=== PATIENT | female | born 1960 | race Caucasian/White ===

== ENCOUNTER → 2020-07-13 | Outpatient (CLI) | payer OTHER ==
--- NOTE | 2020-07-13 14:00 | ECHOF ---
Referral Reason:[facility] EKG R94.31 MEASUREMENTS -------- HEIGHT: 162.6 cm WEIGHT: 83.9 kg BP: RVIDd: 3.2 cm (< 3.3) IVSd: 1.0 cm (0.6 - 1.1) LVIDd: 4.4 cm (3.9 - 5.3) LVPWd: 1.4 cm (0.6 - 1.1) IVSs: 1.4 cm LVIDs: 2.5 cm LVPWs: 1.8 cm LA Diam: 4.8 cm (2.7 - 3.8) LAESV Index (A-L): 31.97 ml/m Ao Diam: 2.2 cm (2.0 - 3.7) AV Cusp: 1.6 cm (1.5 - 2.6) LA Diam: 4.5 cm (2.7 - 3.8) MV EXCURSION: 21.171 mm (> 18.000) MV EF SLOPE: 110 mm/s (70 - 150) EPSS: 0.8 cm MV E Angel: 0.76 m/s MV DecT: 178 ms MV A Angel: 0.62 m/s MV E/A Ratio: 1.23 RAP: 5.00 mmHg RVSP: 27.32 mmHg FINDINGS -------- Sinus rhythm. This was a technically good study. LV size, wall thickness and systolic function are normal, with an EF greater than 55%. The left vicky tricular size is normal. The right ventricle is normal in size. LA is midly dilated 29-33ml/m2. The right atrial size is normal. The aortic valve is trileaflet, and appears structurally normal. No aortic stenosis or regurgitation. Mild mitral regurgitation is present. Mild tricuspid regurgitation present. Right ventricular systolic pressure is normal at < 35 mmHg. There is no pulmonic regurgitation present. The aortic root size is normal. There is no pericardial effusion. CONCLUSIONS -------- 1. LV size, wall thickness and systolic function are normal, with an EF greater than 55%. 2. The left ventricular size is normal. 3. The right ventricle is normal in size. 4. LA is midly dilated 29-33ml/m2. 5. The right atrial size is normal. 6. Mild mitral regurgitation is present. 7. Mild tricuspid regurgitation present. 8. The aortic root size is normal. 9. There is no pericardial effusion. SEAT JOINER CHAINSTITCH: Marilee Cui RDCS
== END | disposition home or self-care (01) ==
LOC: RADECHMAIN 12:08
PROVIDERS: ATTEND Nurse Practitioner
DX: I08.1 Rheumatic disorders of both mitral and tricuspid valves (principal)
CPT/HCPCS: 93306

== ENCOUNTER → 2020-08-18 | Outpatient (CLI) | payer OTHER ==
--- NOTE | 2020-08-30 09:13 | MM ---
Reason for exam: screening (asymptomatic). Last mammogram was performed 2 years and 9 months ago. History: Excisional biopsy of the right breast, 2018. Excisional biopsy of the left breast, 1995. Physical Findings: A clinical breast exam by your physician is recommended on an annual basis and results should be correlated with mammographic findings. MG 3D Screening Mammo W/Cad Bilateral CC and MLO view(s) were taken. Prior study comparison: November 14, 2017, mammogram, performed at [facility]. July 18, 2015, mammogram, performed at [place]. The breast tissue is heterogeneously dense. This may lower the sensitivity of mammography. Previous mammotome biopsy in the right breast. There is chronic nodularity in the left anterior superior left MLO view. Stable grouped calcifications on either side. No significant changes when compared with prior studies. ASSESSMENT: Benign, BI-RAD 2 RECOMMENDATION: Routine screening mammogram of both breasts in 1 year.
== END | disposition home or self-care (01) ==
LOC: RADMAMWWP 10:36
PROVIDERS: ATTEND General Practice
DX: Z12.31 Encounter for screening mammogram for malignant neoplasm of breast (principal)
CPT/HCPCS: 77063; 77067

== ENCOUNTER → 2021-12-19 | Outpatient (CLI) | payer OTHER ==
--- NOTE | 2021-12-20 10:03 | MM ---
Reason for Exam: Screening (asymptomatic). Last mammogram was performed 1 year(s) and 4 month(s) ago. Patient History: Menarche at age 7. First Full-Term at age 14. Hysterectomy at age 34. 1995, Excisional Biopsy on the Left side. 2017, Excisional Biopsy on the Right side. Risk Values: Emily 5 year model risk: 1.9%. NCI Lifetime model risk: 7.9%. Prior Study Comparison: 07/18/2015 Screening Mammogram, [place]. 11/14/2017 Screening Mammogram, [facility]. 08/18/2020 Bilateral Screening Mammogram, [facility]. Tissue Density: The breast tissue is heterogeneously dense. This may lower the sensitivity of mammography. Findings: Analyzed By CAD. There is no suspicious group of microcalcifications or new suspicious mass in either breast. Benign calcifications are noted. Overall Assessment: Benign, BI-RAD 2 Management: Screening Mammogram of both breasts in 1 year. A clinical breast exam by your physician is recommended on an annual basis and results should be correlated with mammographic findings. Electronically signed and approved by: Jonathan Tineo M.D. Radiologis
== END | disposition home or self-care (01) ==
LOC: RADMAMWWP 10:58
PROVIDERS: ATTEND Internal Medicine
DX: Z12.31 Encounter for screening mammogram for malignant neoplasm of breast (principal); Z98.890 Other specified postprocedural states
CPT/HCPCS: 77063; 77067

== ENCOUNTER → 2023-05-30 | Outpatient (CLI) | payer MEDICARE ==
--- NOTE | 2023-05-30 18:09 | US ---
EXAMINATION TYPE: US thyroid st tissue head/neck DATE OF EXAM: 05/30/2023 COMPARISON: NONE CLINICAL INDICATION: Female, 63 years old with history of E04.1 NONTOXIC SINGLE THYROID NODULE; nodul e GLAND SIZE: Right Lobe: 5.5 x 2.0 x 2.0 cm Overall Parenchyma: heterogeneous Left Lobe: 4.7 x 1.1 x 1.5 cm Overall Parenchyma: heterogeneous Isthmus Thickness: 0.28 cm NODULES RIGHT: # of nodules measured on right: 1 1. 2.5 X 1.6 x 1.7 cm, mid mid, Prior size: No prior TIRADS Score: 3 TIRADS Category 3: Composition: Mixed cystic and solid (1 point). Echogenicity: Hypoechoic (2 points). Shape: Wider than tall (0 points). Margin: Smooth (0 points). Echogenic foci: None or large comet-tail artifacts (0 points) Recommendation: If >2.5cm: FNA; If >1.5cm: Follow up at 1,3,5 years LEFT: # of nodules measured on left: 1, Additional less than 5 mm nodule seen, not fully measured . 1. 1.4 X 1.0 x 0.9 cm, Prior size: No prior TIRADS Score: 3 TIRADS Category 3: Composition: Solid or almost completely solid (2 points). Echogenicity: Hyperechoic or isoechoic (1 point). Shape: Wider than tall (0 points). Margin: Smooth (0 points). Echogenic foci: None or large comet-tail artifacts (0 points) Recommendation: If >2.5cm: FNA; If >1.5cm: Follow up at 1,3,5 years ISTHMUS: # of nodules measured in the isthmus: 0 Bilateral neck scanned, no evidence of lymphadenopathy. IMPRESSION: Right thyroid nodule that meets criteria for fine-needle aspiration majority performed.
--- NOTE | 2023-05-31 04:40 | CT ---
EXAMINATION TYPE: CT chest wo con DATE OF EXAM: 05/30/2023 COMPARISON: Chest x-ray April 17, 2022 HISTORY: Nonspecific abnormal finding of the lung field. CT DLP: 440.3 mGycm. Automated Exposure Control for Dose Reduction was Utilized. TECHNIQUE: CT scan of the thorax is performed without IV contrast. FINDINGS: LUNGS: There is 5 mm peripheral nodule in the left lower lobe axial image 39. There is mild right bas ilar linear scarring and/or atelectasis. There is no pleural effusion or pneumothorax seen. The tr acheobronchial tree is patent. MEDIASTINUM: Lack of IV contrast is noted to limit evaluation for mediastinal and especially hilar ad enopathy. Prominent pulmonary arteries raises concern for underlying pulmonary artery hypertension. T here are prominent but subcentimeter paratracheal and right tracheobronchial lymph nodes. Mild cardio megaly. There is moderate biatrial dilatation. No pericardial effusion. OTHER: Surgical changes from gastric bypass procedure are seen. There is a small sliding-type hiatal hernia. There is 2.3 cm oval low dense right thyroid nodule coronal image 52. IMPRESSION: 1. There is 5 mm peripheral left lower lobe nodule. Consider follow-up CT in one year time to reasses s as per Fleischner Society recommendations. 2. There is 2.3 cm right thyroid nodule. Advise thyroid ultrasound follow-up to further evaluate and characterize if this is not known finding.
== END | disposition home or self-care (01) ==
LOC: RADCTMAIN 13:54
PROVIDERS: ATTEND Family Medicine
DX: E04.1 Nontoxic single thyroid nodule (principal); R91.8 Other nonspecific abnormal finding of lung field
CPT/HCPCS: 71250; 76536

== ENCOUNTER → 2023-07-01 | Outpatient (CLI) | payer MEDICARE ==
--- NOTE | 2023-07-02 19:31 | MM ---
Reason for Exam: Screening (asymptomatic). Last mammogram was performed 1 year(s) and 6 month(s) ago. Patient History: Menarche at age 7. First Full-Term at age 14. Hysterectomy at age 34. 1995, Excisional Biopsy on the Left side. 2017, Excisional Biopsy on the Right side. Risk Values: Emily 5 year model risk: 2.0%. NCI Lifetime model risk: 7.4%. Prior Study Comparison: 11/14/2017 Screening Mammogram, [facility]. 08/18/2020 Bilateral Screening Mammogram, [facility]. 12/19/2021 Bilateral MG 3D screening mammo w/cad, [facility]. Tissue Density: There are scattered areas of fibroglandular density. Findings: Analyzed By CAD. Bilateral asymmetric densities are unchanged. Scattered benign round calcifications are also unchanged. There is no suspicious group of microcalcifications or new suspicious mass in either breast. Overall Assessment: Benign, BI-RAD 2 Management: Screening Mammogram of both breasts in 1 year. . Patient should continue monthly self-breast exams. A clinical breast exam by your physician is recommended on an annual basis. This exam should not preclude additional follow-up of suspicious palpable abnormalities. Note on Emily scores and lifetime risk: 1. A Emily score greater than 3% is considered moderate risk. If this is the case, consider specialist referral to assess eligibility for a risk reducing agent. 2. If overall lifetime risk for the development of breast cancer is 20% or higher, the patient may qualify for future screening with alternating mammogram and breast MRI. Electronically signed and approved by: Yohan Sanchez M.D. Radiologist
== END | disposition home or self-care (01) ==
LOC: RADMAMWWP 09:52
PROVIDERS: ATTEND Family Medicine
DX: Z12.31 Encounter for screening mammogram for malignant neoplasm of breast (principal)
CPT/HCPCS: 77063; 77067

== ENCOUNTER → 2023-07-10 | Outpatient (CLI) | payer MEDICARE, OTHER ==
--- NOTE | 2023-07-11 06:50 | CA ---
Transthoracic Echo Report Name: Sharlene Escalera Age: 63 Gender: F : 1960 Exam Date: 07/10/2023 13:56 Exam Location: [facility] Ht (in): 62 Wt (lb): 195 Ordering Physician: Karyn De Jesus Attending/Referring Phys: Applications Intern No Guthrie RDCS Procedure CPT: Indications: R06.02 ECECHOH Cardiac Hx: Technical Quality: Fair Contrast 1: Total Dose (mL): Contrast 2: Total Dose (mL): MEASUREMENTS (Male / Female) Normal Values 2D ECHO LV Diastolic Diameter PLAX 4.3 cm 4.2 - 5.9 / 3.9 - 5.3 cm LV Systolic Diameter PLAX 2.6 cm IVS Diastolic Thickness 0.9 cm 0.6 - 1.0 / 0.6 - 0.9 cm LVPW Diastolic Thickness 1.0 cm 0.6 - 1.0 / 0.6 - 0.9 cm LV Relative Wall Thickness 0.4 RV Internal Dim ED PLAX 4.3 cm LVOT Diameter 1.9 cm LA Volume 106.5 cm??? 18 - 58 / 22 - 52 cm??? LA Volume Index 53.0 cm???/m??? 16 - 28 cm???/m??? M-MODE Aortic Root Diameter MM 2.9 cm LA Systolic Diameter MM 5.1 cm LA Ao Ratio MM 1.8 AV Cusp Separation MM 1.3 cm DOPPLER AV Peak Velocity 185.8 cm/s AV Peak Gradient 13.8 mmHg AV Mean Velocity 135.0 cm/s AV Mean Gradient 8.0 mmHg AV Velocity Time Integral 38.5 cm LVOT Peak Velocity 74.4 cm/s LVOT Peak Gradient 2.2 mmHg LVOT Velocity Time Integral 15.0 cm LVOT Stroke Volume 42.9 cm??? LVOT Stroke Volume Index 22.7 ml/m??? LVOT Cardiac Index 1688.5 cm???/min???m??? AV Area Cont Eq vti 1.1 cm??? AV Area Cont Eq pk 1.1 cm??? MV Area PHT 4.2 cm??? MR Peak Velocity 503.2 cm/s MR Peak Gradient 101.3 mmHg MR Flow Rate PISA 33.5 cm???/s Mitral E Point Velocity 115.5 cm/s Mitral A Point Velocity 0.9 cm/s Mitral E to A Ratio 127.8 MV Deceleration Time 180.3 ms MV E' Velocity 8.2 cm/s Mitral E to MV E' Ratio 14.2 TR Peak Velocity 256.5 cm/s TR Peak Gradient 26.3 mmHg Right Ventricular Systolic Press 32.1 mmHg FINDINGS Left Ventricle Normal Left ventricular size, wall thickness, systolic function with no obvious regional wall motion abnormalities. Can not assess diastolic function since the patient is in A-fib. Right Ventricle Normal right ventricular size and function. Right ventricular systolic pressure within normal limits. Right Atrium Severe right atrial dilatation. Left Atrium Severely increased left atrial volume. Mildly increased left atrial area. Mitral Valve Structurally normal mitral valve. Mild mitral annular calcification. Moderate mitral regurgitation. Aortic Valve Trileaflet aortic valve. No aortic stenosis. Trace aortic regurgitation. Tricuspid Valve Structurally normal tricuspid valve. Moderate tricuspid regurgitation. Pulmonic Valve Structurally normal pulmonic valve. Trace pulmonic regurgitation. Pericardium No pericardial effusion. Aorta Normal size aortic root and proximal ascending aorta. CONCLUSIONS Normal LV systolic function. The ejection fraction is 50-55% Normal right ventricular dimension and systolic function as well Severe biatrial enlargement Moderate mitral regurgitation Moderate tricuspid regurgitation Normal pulmonary artery systolic pressure Previewed by: Dr. Cisco Miller MD (Electronically Signed) Final Date: 11 Jul 2023 06:49
== END | disposition home or self-care (01) ==
LOC: RADECHMAIN 13:39
PROVIDERS: ATTEND Nurse Practitioner Acute Care
DX: I34.0 Nonrheumatic mitral (valve) insufficiency (principal); I36.1 Nonrheumatic tricuspid (valve) insufficiency; I48.11 Longstanding persistent atrial fibrillation; I51.7 Cardiomegaly
CPT/HCPCS: 93306

== ENCOUNTER 2023-08-09 12:20 | Day surgery (SDC) | payer MEDICARE, OTHER ==
[2023-08-09] MEDS: IV FLUID CONTINUATION 1,000 ML IV ONE (13:07)
[2023-08-09] MEDS: LACTATED RINGERS 1,000 ML BAG IV ONE (13:13)
[2023-08-09 13:20] VITALS: TEMP 96.9
[2023-08-09] MEDS ORDERED: PROPOFOL 10 MG/ML 20 ML VIAL IV ONE (13:55)
[2023-08-09] MEDS ORDERED: LIDOCAINE 1% INJ 10MG/ML (20 ML MDV) ONE (13:55)
--- NOTE | 2023-08-09 14:24 | P.PCN ---
Date of Procedure: 08/09/23 Procedure(s) Performed: BRIEF HISTORY: Patient is a 63-year-old pleasant white female scheduled for an elective colonoscopy as a part of screening for colon cancer/positive Cologuard. PROCEDURE PERFORMED: Colonoscopy with snare polypectomy. PREOPERATIVE DIAGNOSIS: Screening for colon cancer/positive Cologuard. IV sedation per Anesthesia. PROCEDURE: After informed consent was obtained, the patient, was brought into the endoscopy unit. IV sedation was administered by Anesthesia under continuous monitoring. Digital rectal examination was normal. Initially the Olympus CF-160 flexible video colonoscope was then inserted in the rectum, gradually advanced into the cecum without any difficulty. Careful examination was performed as the scope was gradually being withdrawn. Ileocecal valve and the appendiceal orifice were visualized and appeared normal. Prep was excellent. Mucosa of the cecum, ascending colon, appeared normal. The proximal transverse colon there was a 3 cm submucosal lipoma 9 identified that was biopsied. In the descending colon there was a 2 cm broad-based polyp removed by piecemeal snare polypectomy and complete polypectomy accomplished. Rest of the descending colon, sigmoid colon, and rectum appeared normal. In the proximal rectum at 20 cm from the anal verge there was a 1.5 cm polyp removed by snare polypectomy. Retroflexion was performed in the rectum and no lesions were seen. The patient tolerated the procedure well. IMPRESSION: 2 cm descending colon polyp status post polypectomy 1.5 cm proximal rectal polyp status post polypectomy 3 cm lipoma in the proximal transverse colon s/p biopsy RECOMMENDATIONS: Findings of this examination were discussed with the patient as well as her family..
[2023-08-09 15:06] VITALS: BP 125/71; PULSE 87; RESP 17
== END 2023-08-09 15:00 | disposition home or self-care (01) ==
LOC: ORWHC2ENDO 12:20
PROVIDERS: ATTEND Internal Medicine Gastroenterology
DX: D12.4 Benign neoplasm of descending colon (principal); D12.7 Benign neoplasm of rectosigmoid junction; I25.10 Atherosclerotic heart disease of native coronary artery without angina pectoris; I48.91 Unspecified atrial fibrillation; I10 Essential (primary) hypertension; M19.90 Unspecified osteoarthritis, unspecified site; Z79.01 Long term (current) use of anticoagulants; Z79.899 Other long term (current) drug therapy; Z79.1 Long term (current) use of non-steroidal anti-inflammatories (NSAID); Z88.2 Allergy status to sulfonamides; Z88.8 Allergy status to other drugs, medicaments and biological substances
CPT/HCPCS: 88305; 45380; 45385; J2001; J2704

== ENCOUNTER 2023-08-26 11:40 | Day surgery (SDC) | payer MEDICARE ==
[2023-08-26] MEDS ORDERED: LACTATED RINGERS 1,000 ML IV SCH (12:03)
[2023-08-26 12:15] VITALS: TEMP 97.2
[2023-08-26 12:43] LABS: African American GFR (CKD) 86 (>60 ml/min/1.73 sqM); Anion Gap 4 mmol/L; Blood Urea Nitrogen 13 mg/dL (7-17); Carbon Dioxide 24 mmol/L (22-30); Chloride 111 mmol/L (98-107); Glucose 106 mg/dL (74-99); Non-African American GFR(CKD) 75 (>60 ml/min/1.73 sqM); Potassium 4.6 mmol/L (3.5-5.1); Sodium 139 mmol/L (137-145)
[2023-08-26] MEDS: SODIUM CHLORIDE 0.9% 500 ML 500 ML IV SCH (12:43)
[2023-08-26] MEDS: IV FLUID CONTINUATION 1,000 ML IV ONE (12:45)
[2023-08-26] MEDS ORDERED: LIDOCAINE 1% INJ 10MG/ML (20 ML MDV) ONE (13:00)
[2023-08-26] MEDS ORDERED: PROPOFOL 10 MG/ML 20 ML VIAL IV ONE (13:00)
[2023-08-26] MEDS: BENZOCAINE SPRAY 1 CAN TOPICAL ONE (13:05)
--- NOTE | 2023-08-26 13:19 | P.TEE ---
Description of Procedure(s): Procedure performed: Transesophageal Echocardiogram with color flow doppler, pulsed wave doppler and continuous wave doppler, synchronized cardioversion Moderate conscious sedation: Moderate conscious sedation was supplied by anesthesia, see separate report. Complications: none Indications: Afib PROCEDURE: After the risks, benefits and alternatives of the above mentioned procedure was explained in detail with the patient, informed consent was obtained. Patient was brought to the lab in a fasting state. Patient was given sedation by anesthesia, see separate report. The throat was sprayed with Hurricane to anesthetize the throat. A lubricated Omni probe was then introduced into the esophagus and stomach and multiple views were obtained. 2D echo with color flow doppler, pulsed wave doppler and continuous wave doppler was utilized. Agitated saline bubbles were injected to assess for any intra- atrial shunt. The probe was then removed. There was no thrombus noted and therefore patient underwent synchronized cardioversion x 1 with 200J with resultant sinus rhythm. Patient tolerated the procedure well. Patient was transferred to the post procedure area in stable and satisfactory condition. FINDINGS: 1. The aortic valve is tricuspid and function normally. 2. The mitral valve appears be normal with moderate mitral regurgitation, initially worse while BP elevated. 3. Tricuspid valve appears to be structurally normal with moderate to severe tricuspid regurgitation. 4. The interatrial septum is intact. No evidence of PFO. 5. Left atrial appendage is free of clot. 6. Left ventricular EF 55% 7. Severe biatrial enlargement
[2023-08-26 14:19] VITALS: RESP 16
[2023-08-26 14:50] VITALS: BP 112/72; PULSE 71
== END 2023-08-26 14:54 | disposition home or self-care (01) ==
LOC: OR 11:40
PROVIDERS: ATTEND Internal Medicine
DX: I08.1 Rheumatic disorders of both mitral and tricuspid valves (principal); I48.11 Longstanding persistent atrial fibrillation; I10 Essential (primary) hypertension; K21.9 Gastro-esophageal reflux disease without esophagitis; D50.9 Iron deficiency anemia, unspecified; Z79.01 Long term (current) use of anticoagulants; Z79.899 Other long term (current) drug therapy
CPT/HCPCS: 93312; 93320; 93325; 92960; 80048; J2001; J2704

== ENCOUNTER 2023-12-07 10:15 | Observation (INO) | payer MEDICARE, OTHER ==
[2023-12-07 11:38] LABS: Appearance,Urine Clear (Clear); Bacteria,Urine Rare /hpf; Bilirubin,Urine Negative (Negative); Blood,Urine Small (Negative); Color,Urine Colorless; Glucose,Urine (UA) 2+ (Negative); Ketones,Urine Negative (Negative); Leukocyte Esterase,Urine Moderate (Negative); Nitrite,Urine Negative (Negative); Protein,Urine Negative (Negative); RBC,Urine <1 /hpf (0-5); Specific Gravity,Urine 1.002 (1.001-1.035); Squamous Epithelial Cell,Urine 1 /hpf (0-4); Urobilinogen,Urine <2.0 mg/dL (<2.0); WBC,Urine 8 /hpf (0-5)
[2023-12-07] MEDS: ASPIRIN 81 MG PO STA (11:45)
--- NOTE | 2023-12-07 12:00 | XR ---
EXAMINATION TYPE: XR chest 2V DATE OF EXAM: 12/07/2023 COMPARISON: 04/17/2022 HISTORY: Chest pain TECHNIQUE: Frontal and lateral views of the chest are obtained. FINDINGS: There is no focal air space opacity, pleural effusion, or pneumothorax seen. The cardiac silhouette size is within normal limits. The osseous structures are intact. IMPRESSION: No acute cardiopulmonary process. [facility], Workstation: MARYSE 12/07/2023 11:57 AM
[2023-12-07] MEDS: SODIUM CHLORIDE 0.9% 1,000 ML IV STA (12:12)
[2023-12-07] MEDS: METOPROLOL TARTRATE 5 MG/5 ML VIAL IVP STA (12:13)
[2023-12-07 12:21] LABS: Anisocytosis Slight; Basophils # (A) 0.1 k/uL (0-0.2); Basophils % (A) 1 %; Eosinophils # (A) 0.2 k/uL (0-0.7); Eosinophils % (A) 2 %; Hypochromasia Slight; Lymphocytes # (A) 1.5 k/uL (1.0-4.8); Lymphocytes % (A) 15 %; MCH 28.7 pg (25.0-35.0); MCHC 31.8 g/dL (31.0-37.0); MCV 90.4 fL (80.0-100.0); Mean Platelet Volume 7.5; Monocytes # (A) 0.7 k/uL (0-1.0); Monocytes % (A) 7 %; Neutrophils # (A) 7.5 k/uL (1.3-7.7); Neutrophils % (A) 75 %; Platelet Count 288 k/uL (150-450); RBC 4.87 m/uL (3.80-5.40); WBC 9.9 k/uL (3.8-10.6)
[2023-12-07 12:34] LABS: ALT 35 U/L (4-34); AST 29 U/L (14-36); African American GFR (CKD) 81 (>60 ml/min/1.73 sqM); Albumin 3.6 g/dL (3.5-5.0); Alkaline Phosphatase 97 U/L (38-126); Anion Gap 6 mmol/L; Blood Urea Nitrogen 11 mg/dL (7-17); Calcium 9.2 mg/dL (8.4-10.2); Carbon Dioxide 26 mmol/L (22-30); Chloride 109 mmol/L (98-107); Glucose 82 mg/dL (74-99); Magnesium 2.1 mg/dL (1.6-2.3); Non-African American GFR(CKD) 70 (>60 ml/min/1.73 sqM); Sodium 141 mmol/L (137-145); Total Bilirubin 0.5 mg/dL (0.2-1.3); Total Protein 6.9 g/dL (6.3-8.2)
[2023-12-07 12:37] LABS: Partial Thromboplastin Time 25.4 sec (22.0-30.0); Prothrombin Time 10.8 sec (10.0-12.5)
[2023-12-07 12:42] LABS: NT-Pro-B-Type Natriuretic Pept 403 pg/mL
[2023-12-07] MEDS: METOPROLOL TARTRATE 25 MG TAB PO STA (12:49)
[2023-12-07] MEDS ORDERED: NALOXONE 0.4 MG/ML 1 ML VIAL IV PRN (13:35)
--- NOTE | 2023-12-07 13:54 | P.HPIM ---
History of Present Illness H&P Date: 12/07/23 63 year old F with PMH of A-Fib presents to the ED. She reports a constellation of symptoms including palpitations, lightheadedness and nausea that started after breakfast. She checked her vitals and noted her SBP to be in the 170s and HR in the 120s. She also reported chest pain, pressure like in nature. She took 2 nitro SL which seemed to help. These symptoms prompted her to come to the ED. In the ED she underwent extensive evaluation. BP 149/90, HR 129, T 98.1F, RR 20, 99% on RA. CBC, Coag panel, CMP significant for Cl 109, ALT 35. Troponin < 0.012 with EKG showing A-Fib with RVR. CXR negative. UA moderate LE. BNP 304. Mag 2.1. She was given Metoprolol 2.5 mg IV, ASA 325 mg PO x 1, Metoprolol 25 mg PO x 1, 1L NS bolus in the ED. Patient is admitted for chest pain, rule out ACS and Cardiology evaluation. General: non toxic, no distress, appears at stated age Derm: warm, dry Head: atraumatic, normocephalic, symmetric Eyes: EOMI, no lid lag, anicteric sclera Mouth: no lip lesion, mucus membranes moist Cardiovascular: S1S2 irregular, no murmur Lungs: Clear to auscultation bilateral, no rhonchi, no rales , no accessory muscle use Ext: no gross muscle atrophy, no edema, no contractures Neuro: No focal neurologic deficits Psych: Alert and oriented Based on my assessment of this patient, this patient meets a high complexity level of care. Atrial fibrillation with RVR: Start Metoprolol 50 mg PO QD. Dronedarone 400 mg PO BID. Eliquis 5 mg PO BID for AC. Obtain TSH. Cardiology consultation. Chest pain: Patient reports recent stress test 4 months ago with [facility]. Status post ASA 325 mg PO x 1. Trend Trop/EKG to rule out ACS. Telemetry monitoring. Cardiology consultation. Abnormal UA: No urinary symptoms. CODE STATUS: FULL CODE. DVT Prophylaxis: Eliquis GI Prophylaxis: Designated medical POA if patient is not able to make medical decisions for themselves: I have reviewed the following rn lactation consultant notes: ER note. I have reviewed the results of the following tests: As above. I have ordered the following tests: As above. I have discussed the care of this patient with the following independent historian: Family at bedside. I have independently interpreted the following test below: CXR. I have discussed the management of this patient with the following physician: Past Medical History Past Medical History: Atrial Fibrillation, Blood Disorder, Hypertension, Osteoarthritis (OA) Additional Past Medical History / Comment(s): Ablasion for Afib done twice - last one October 2021, on eliquis for afib, IRON DEFICIENCY ANEMIA. History of Any Multi-Drug Resistant Organisms: None Reported Past Surgical History: Breast Surgery, Hysterectomy, Orthopedic Surgery Additional Past Surgical History / Comment(s): right knee unispacer, benign lump removed from breast, Past Anesthesia/Blood Transfusion Reactions: No Reported Reaction Past Psychological History: No Psychological Hx Reported Smoking Status: Never smoker - Past Family History Father Family Medical History: Myocardial Infarction (AL) Medications and Allergies Home Medications Medication Instructions Recorded Confirmed Type Apixaban [Eliquis] 5 mg PO DIRECTED 04/17/22 12/07/23 History Dronedarone HCl [Multaq] 400 mg PO DIRECTED 04/17/22 12/07/23 History amLODIPine [Norvasc] 10 mg PO DAILY 04/17/22 12/07/23 History Metoprolol Succinate (ER) [Toprol 50 mg PO DIRECTED 08/07/23 12/07/23 History XL] Furosemide [Lasix] 10 - 20 mg PO DIRECTED 12/07/23 12/07/23 History Allergies Allergy/AdvReac Type Severity Reaction Status Date / Time Iodinated Contrast Media Allergy chest Verified 12/07/23 13:16 pressure/pain Sulfa (Sulfonamide Allergy Tongue Verified 12/07/23 13:16 Antibiotics) swelling & rapid heart rate Physical Exam Vitals: Vital Signs Temp Pulse Pulse Resp BP Pulse Ox 12/07/23 12:15 105 H 16 132/71 98 12/07/23 11:29 114 H 18 130/73 98 12/07/23 11:02 111 H 12/07/23 10:23 98.1 F 129 H 20 149/90 99 Intake and Output 12/06/23 12/07/23 12/07/23 22:59 06:59 14:59 Other: Weight 90.718 kg Results CBC & Chem 7: 12/07/23 11:12 12/07/23 11:12 Labs: Abnormal Lab Results - Last 24 Hours (Table) 12/07/23 12/07/23 12/07/23 Range/Units 11:12 11:12 11:12 RDW 19.0 H (11.5-15.5) % Chloride 109 H (98-107) mmol/L ALT 35 H (4-34) U/L Urine Glucose (UA) 2+ H (Negative) Urine Blood Small H (Negative) Ur Leukocyte Esterase Moderate H (Negative) Urine WBC 8 H (0-5) /hpf Urine Bacteria Rare H (None) /hpf
--- NOTE | 2023-12-07 14:48 | ED ---
General Adult HPI - General Chief complaint: Arrhythmia/Palpitations Stated complaint: Possible cardiac arrest Time Seen by Provider: 12/07/23 10:45 Source: patient, RN notes reviewed, old records reviewed Mode of arrival: ambulatory Limitations: no limitations - History of Present Illness Initial comments: Patient is a 63-year-old female with past medical history remarkable for atrial fibrillation presents emergency department complaining of chest pain and atrial fibrillation. Has a history of synchronized cardioversion. Is on blood thi nners. Also past medical history of hypertension. States that this morning after breakfast she began feeling a little nauseous with some nonspecific substernal chest discomfort. Took 2 nitros which did improve her pain however she began feeling like her heart was racing. Found she was hypertensive as well as with a fast heart rate. Came to the emergency department for further evaluation. Patient is on metoprolol as well as blood thinners at home. Denies cough, congestion, fevers, abdominal pain, nausea, vomiting. Presents for further evaluation at this time. - Related Data Home Medications Medication Instructions Recorded Confirmed Apixaban [Eliquis] 5 mg PO DIRECTED 04/17/22 12/07/23 Dronedarone HCl [Multaq] 400 mg PO DIRECTED 04/17/22 12/07/23 amLODIPine [Norvasc] 10 mg PO DAILY 04/17/22 12/07/23 Metoprolol Succinate (ER) [Toprol 50 mg PO DIRECTED 08/07/23 12/07/23 XL] Furosemide [Lasix] 10 - 20 mg PO DIRECTED 12/07/23 12/07/23 Allergies Allergy/AdvReac Type Severity Reaction Status Date / Time Iodinated Contrast Media Allergy chest Verified 12/07/23 13:16 pressure/pain Sulfa (Sulfonamide Allergy Tongue Verified 12/07/23 13:16 Antibiotics) swelling & rapid heart rate Review of Systems ROS Statement: Those systems with pertinent positive or pertinent negative responses have been documented in the HPI. Review of Systems: CONST: Denies fever EYES: Denies blurry vision ENT: Denies nasal congestion C/V: Endorses palpitation RESP: Denies shortness of breath GI: Denies abdominal pain : Denies dysuria SKIN: Denies rash. MSK: Denies joint pain. NEURO: Denies headache ROS Other: All systems not noted in ROS Statement are negative. Past Medical History Past Medical History: Atrial Fibrillation, Blood Disorder, Hypertension, Osteoarthritis (OA) Additional Past Medical History / Comment(s): Ablasion for Afib done twice - last one October 2021, on eliquis for afib, IRON DEFICIENCY ANEMIA. History of Any Multi-Drug Resistant Organisms: None Reported Past Surgical History: Breast Surgery, Hysterectomy, Orthopedic Surgery Additional Past Surgical History / Comment(s): right knee unispacer, benign lump removed from breast, Past Anesthesia/Blood Transfusion Reactions: No Reported Reaction Past Psychological History: No Psychological Hx Reported Smoking Status: Never smoker - Past Family History Father Family Medical History: Myocardial Infarction ([place]) General Exam - General Exam Comments Initial Comments: General: Appears in no acute distress. HEAD: Normal with no signs of head trauma. EYES: EOMI ENT: Hearing grossly intact, normal oropharynx. RESPIRATORY: Clear breath sounds bilaterally. No wheezes, rales, or rhonchi. C/V: Irregular rate and rhythm. S1 and S2 auscultated, no edema, peripheral pulses 2+ and intact throughout ABD: Abd is soft, nontender, nondistended EXT: Normal range of motion, no obvious deformity SKIN: No rashes or lesions observed on exposed skin. NEURO: Alert and oriented x 4 Limitations: no limitations Course Vital Signs 12/07/23 12/07/23 12/07/23 10:23 11:02 11:29 Temperature 98.1 F Pulse Rate 129 H 114 H Pulse Rate [ 111 H Intermission Coordinator ] Respiratory 20 18 Rate Blood Pressure 149/90 130/73 O2 Sat by Pulse 99 98 Oximetry 12/07/23 12/07/23 12:15 14:03 Temperature Pulse Rate 105 H 87 Pulse Rate [ Intermission Coordinator ] Respiratory 16 16 Rate Blood Pressure 132/71 146/83 O2 Sat by Pulse 98 97 Oximetry Medical Decision Making - Medical Decision Making Was pt. sent in by a medical professional or institution (, PA, JANITOR HELPER, urgent care, hospital, or [facility]...) When possible be specific @ -No Did you speak to anyone other than the patient for history (EMS, parent, family, police, friend...)? What history was obtained from this source @ -No Did you review nursing and triage notes (agree or disagree)? Why? @ -I reviewed and agree with nursing and triage notes Were old charts reviewed (outside hosp., previous admission, EMS record, old EKG, old radiological studies, urgent care reports/EKG's, [facility] records)? Report findings @ -Charts including EKG reviewed from August 2023 when patient was in normal sinus rhythm. Differential Diagnosis (chest pain, altered mental status, abdominal pain women, abdominal pain men, vaginal bleeding, weakness, fever, dyspnea, syncope, headache, dizziness, GI bleed, back pain, seizure, CVA, palpatations, mental health, musculoskeletal)? @ -Differential Chest Pain: Stable Angina, Unstable Angina, STEMI, NSTEMI Aortic Dissection, Pneumothorax, Musculoskeletal, Esophageal Spasm GERD, Cholecystitis, Pancreatitis, Zoster, this is not meant to be an all-inclusive list. EKG interpreted by me (3pts min.). @ -As above X-rays interpreted by me (1pt min.). @ -Chest x-ray reveals no obvious acute cardiopulmonary process. CT interpreted by me (1pt min.). @ -None done U/S interpreted by me (1pt. min.). @ -None done What testing was considered but not performed or refused? (CT, X-rays, U/S, labs)? Why? @ -None What meds were considered but not given or refused? Why? @ -None Did you discuss the management of the patient with other professionals (pr ofessionals i.e. , PA, JANITOR HELPER, lab, RT, psych nurse, geriatric social work professor, svp digital sales, teacher, chief procurement officer, case management associate)? Give summary @ -Discussed with the admitting provider, Dr. Chan who accepted the admission Was smoking cessation discussed for >3mins.? @ -No Was critical care preformed (if so, how long)? @ -No Were there social determinants of health that impacted care today? How? (Homelessness, low income, unemployed, alcoholism, drug addiction, transportation, low edu. Level, literacy, decrease access to med. care, [facility], rehab)? @ -No Was there de-escalation of care discussed even if they declined (Discuss DNR or withdrawal of care, Hospice)? DNR status @ -No What co-morbidities impacted this encounter? (DM, HTN, Smoking, COPD, CAD, Cancer, CVA, ARF, Chemo, Hep., AIDS, mental health diagnosis, sleep apnea, morbid obesity)? @ -A-fib with RVR Was patient admitted / discharged? Hospital course, mention meds given and route, prescriptions, significant lab abnormalities, going to OR and other pertinent info. @ -Based on the patient's presentation and physical exam, patient presents in A-fib with RVR as well as chest pain that responded to nitro at home. Currently no chest pain. Vitals remarkable for A-fib with RVR but otherwise unremarkable. Will obtain cardiac workup. Patient will be given IV metoprolol for her A-fib with RVR. Patient was in agreement this plan. Patient also given aspirin 324 mg. EKG shows A-fib with RVR. Chest x-ray unremarkable. Labs unremarkable including undetectable troponin. On reevaluation, patient's A-fib with RVR did respond to the metoprolol 2.5 mg IV push. Patient given a dose of oral metoprolol 25 mg and we will reorder her normal home medications. Heart rate is now anywhere from 82 to 110 bpm. Remainder the vitals remained within acceptable limits. Due to the chest pain as well as the A-fib with RVR breakthrough I did recommend observation admission which she was in agreement with. Cardiology consulted. I spoke with the admitting provider, Dr. Chan accepted the admission. Undiagnosed new problem with uncertain prognosis? @ -No Drug Therapy requiring intensive monitoring for toxicity (Heparin, Nitro, Insulin, Cardizem)? @ -No Were any procedures done? @ -No Diagnosis/symptom? @ -Chest pain, A-fib with RVR Acute, or Chronic, or Acute on Chronic? @ -Acute Uncomplicated (without systemic symptoms) or Complicated (systemic symptoms)? @ -Complicated Side effects of treatment? @ -No Exacerbation, Progression, or Severe Exacerbation? @ -No Poses a threat to life or bodily function? How? (Chest pain, [place], [place], pneumonia, PE, COPD, DKA, ARF, appy, cholecystitis, CVA, Diverticulitis, Homicidal, Suicidal, threat to staff... and all critical care pts) @ -Potentially, yes - Lab Data Result diagrams: 12/07/23 11:12 12/07/23 11:12 Lab Results 12/07/23 12/07/23 12/07/23 Range/Units 11:12 11:12 11:12 WBC 9.9 (3.8-10.6) k/uL RBC 4.87 (3.80-5.40) m/uL Hgb 14.0 (11.4-16.0) gm/dL Hct 44.0 (34.0-46.0) % MCV 90.4 (80.0-100.0) fL MCH 28.7 (25.0-35.0) pg MCHC 31.8 (31.0-37.0) g/dL RDW 19.0 H (11.5-15.5) % Plt Count 288 (150-450) k/uL MPV 7.5 Neutrophils % 75 % Lymphocytes % 15 % Monocytes % 7 % Eosinophils % 2 % Basophils % 1 % Neutrophils # 7.5 (1.3-7.7) k/uL Lymphocytes # 1.5 (1.0-4.8) k/uL Monocytes # 0.7 (0-1.0) k/uL Eosinophils # 0.2 (0-0.7) k/uL Basophils # 0.1 (0-0.2) k/uL Hypochromasia Slight Anisocytosis Slight PT 10.8 (10.0-12.5) sec INR 1.0 (<1.2) APTT 25.4 (22.0-30.0) sec Sodium (137-145) mmol/L Potassium (3.5-5.1) mmol/L Chloride (98-107) mmol/L Carbon Dioxide (22-30) mmol/L Anion Gap mmol/L BUN (7-17) mg/dL Creatinine (0.52-1.04) mg/dL Est GFR (CKD-EPI)AfAm (>60 ml/min/1.73 sqM) Est GFR (CKD-EPI)NonAf (>60 ml/min/1.73 sqM) Glucose (74-99) mg/dL Calcium (8.4-10.2) mg/dL Magnesium (1.6-2.3) mg/dL Total Bilirubin (0.2-1.3) mg/dL AST (14-36) U/L ALT (4-34) U/L Alkaline Phosphatase (38-126) U/L Troponin I (0.000-0.034) ng/mL NT-Pro-B Natriuret Pep pg/mL Total Protein (6.3-8.2) g/dL Albumin (3.5-5.0) g/dL Urine Color Colorless Urine Appearance Clear (Clear) Urine pH 5.0 (5.0-8.0) Ur Specific [place] 1.002 (1.001-1.035) Urine Protein Negative (Negative) Urine Glucose (UA) 2+ H (Negative) Urine Ketones Negative (Negative) Urine Blood Small H (Negative) Urine Nitrite Negative (Negative) Urine Bilirubin Negative (Negative) Urine Urobilinogen <2.0 (<2.0) mg/dL Ur Leukocyte Esterase Moderate H (Negative) Urine RBC <1 (0-5) /hpf Urine WBC 8 H (0-5) /hpf Ur Squamous Epith Cells 1 (0-4) /hpf Urine Bacteria Rare H (None) /hpf 12/07/23 12/07/23 Range/Units 11:12 11:12 WBC (3.8-10.6) k/uL RBC (3.80-5.40) m/uL Hgb (11.4-16.0) gm/dL Hct (34.0-46.0) % MCV (80.0-100.0) fL MCH (25.0-35.0) pg MCHC (31.0-37.0) g/dL RDW (11.5-15.5) % Plt Count (150-450) k/uL MPV Neutrophils % % Lymphocytes % % Monocytes % % Eosinophils % % Basophils % % Neutrophils # (1.3-7.7) k/uL Lymphocytes # (1.0-4.8) k/uL Monocytes # (0-1.0) k/uL Eosinophils # (0-0.7) k/uL Basophils # (0-0.2) k/uL Hypochromasia Anisocytosis PT (10.0-12.5) sec INR (<1.2) APTT (22.0-30.0) sec Sodium 141 (137-145) mmol/L Potassium 4.0 (3.5-5.1) mmol/L Chloride 109 H (98-107) mmol/L Carbon Dioxide 26 (22-30) mmol/L Anion Gap 6 mmol/L BUN 11 (7-17) mg/dL Creatinine 0.87 (0.52-1.04) mg/dL Est GFR (CKD-EPI)AfAm 81 (>60 ml/min/1.73 sqM) Est GFR (CKD-EPI)NonAf 70 (>60 ml/min/1.73 sqM) Glucose 82 (74-99) mg/dL Calcium 9.2 (8.4-10.2) mg/dL Magnesium 2.1 (1.6-2.3) mg/dL Total Bilirubin 0.5 (0.2-1.3) mg/dL AST 29 (14-36) U/L ALT 35 H (4-34) U/L Alkaline Phosphatase 97 (38-126) U/L Troponin I <0.012 (0.000-0.034) ng/mL NT-Pro-B Natriuret Pep 403 pg/mL Total Protein 6.9 (6.3-8.2) g/dL Albumin 3.6 (3.5-5.0) g/dL Urine Color Urine Appearance (Clear) Urine pH (5.0-8.0) Ur Specific [place] (1.001-1.035) Urine Protein (Negative) Urine Glucose (UA) (Negative) Urine Ketones (Negative) Urine Blood (Negative) Urine Nitrite (Negative) Urine Bilirubin (Negative) Urine Urobilinogen (<2.0) mg/dL Ur Leukocyte Esterase (Negative) Urine RBC (0-5) /hpf Urine WBC (0-5) /hpf Ur Squamous Epith Cells (0-4) /hpf Urine Bacteria (None) /hpf - EKG Data -: EKG Interpreted by Me EKG Comments: 12-lead Electrocardiogram Interpretation Note EKG was reviewed and interpreted by myself. 12-lead ECG performed at 1021 is interpreted by me as revealing atrial fibrillation with RVR at a rate of 134 beats per minute. [place] is normal. QRS durations 102 ms, QTc is 395 ms.. There were no ST or T wave abnormalities to suggest myocardial ischemia or injury. R wave progression across the precordium was satisfactory. By my interpretation this EKG is non-diagnostic for acute ischemia. EKG from August 2023, when patient was in normal sinus rhythm. Disposition Clinical Impression: Atrial fibrillation with RVR, Chest pain Disposition: ADMITTED IP TO THIS HOSP Condition: Stable Time of Disposition: 13:25
[2023-12-07] MEDS: APIXABAN 5 MG TAB PO SCH (22:49)
[2023-12-07] MEDS: DRONEDARONE 400 MG TAB PO SCH (22:50)
[2023-12-08 07:46] VITALS: BP 122/72; PULSE 87; RESP 16; TEMP 98
[2023-12-08 09:09] LABS: Basophils # (A) 0.07 X 10*3/uL (0.00-0.10); Basophils % (A) 0.9 %; Eosinophils # (A) 0.18 X 10*3/uL (0.04-0.35); Eosinophils % (A) 2.4 %; HCT 40.1 % (37.2-46.3); HGB 12.6 g/dL (12.0-15.0); Lymphocytes # (A) 2.16 X 10*3/uL (0.90-5.00); Lymphocytes % (A) 28.6 %; MCH 28.4 pg (27.0-32.0); MCHC 31.4 g/dL (32.0-37.0); MCV 90.3 FL (80.0-97.0); Mean Platelet Volume 10.4 FL (9.5-12.2); Monocytes # (A) 0.68 X 10*3/uL (0.20-1.00); NRBC Per 100 WBC 0 X 10*3/uL (0.00-0.01); Neutrophils # (A) 4.43 X 10*3/uL (1.80-7.70); Neutrophils % (A) 58.7 %; Platelet Count 268 X 10*3/uL (140-440); RBC 4.44 X 10*6/uL (4.10-5.20); RDW 19.4 % (11.5-14.5); WBC 7.55 X 10*3/uL (4.50-10.00)
[2023-12-08] MEDS: amLODIPine 10 MG TAB PO SCH (09:31)
[2023-12-08] MEDS: METOPROLOL SUCCINATE (ER) 50 MG TAB.ER.24H PO SCH (09:32)
[2023-12-08 11:59] LABS: ALT 29 U/L (8-44); AST 25 U/L (13-35); Albumin/Globulin Ratio 1.11 Ratio (1.60-3.17); Alkaline Phosphatase 87 U/L (41-126); BUN/Creat Ratio 10.89 Ratio (12.00-20.00); Blood Urea Nitrogen 9.8 mg/dL (9.0-27.0); Calcium 8.6 mg/dL (8.7-10.3); Carbon Dioxide 26.9 mmol/L (21.6-31.8); Chloride 109 mmol/L (96-109); Globulin 2.7 g/dL (1.6-3.3); Glucose 91 mg/dL (70-110); Potassium 4.2 mmol/L (3.5-5.5); Sodium 143 mmol/L (135-145); Total Bilirubin 0.4 mg/dL (0.3-1.2); Total Protein 5.7 g/dL (6.2-8.2)
--- NOTE | 2023-12-08 12:01 | P.DS ---
Providers Date of admission: 12/07/23 13:35 Expected date of discharge: 12/08/23 Attending physician: Dave Chan Consults: 12/07/23 13:35 Consult Physician Routine Consulting Provider: [facility] Consult Reason/Comments: chest pain, afib with rvr Do you want consulting provider notified?: Yes Primary care physician: [facility] Course: 63 year old F with PMH of A-Fib presents to the ED. She reports a constellation of symptoms including palpitations, lightheadedness and nausea that started after breakfast. She checked her vitals and noted her SBP to be in the 170s and HR in the 120s. She also reported chest pain, pressure like in nature. She took 2 nitro SL which seemed to help. These symptoms prompted her to come to the ED. In the ED she underwent extensive evaluation. BP 149/90, HR 129, T 98.1F, RR 20, 99% on RA. CBC, Coag panel, CMP significant for Cl 109, ALT 35. Troponin < 0.012 with EKG showing A-Fib with RVR. CXR negative. UA moderate LE. BNP 304. Mag 2.1. She was given Metoprolol 2.5 mg IV, ASA 325 mg PO x 1, Metoprolol 25 mg PO x 1, 1L NS bolus in the ED. Patient is admitted for chest pain, rule out ACS and Cardiology evaluation. Troponins trended and negative. Restarted on Metoprolol, Dronedarone and Eliquis. Remained rate controlled overnight. 12/07 Patient was seen and examined. No events overnight. No chest pain. CBC and CMP significant for Ca 8.6, total protein 5.7, alb 3. Troponin < 0.012 x3. TSH 3.07. Discussed with Tere GAMBOA with Cardiology, cleared for discharge home with outpatient follow up with Dr. Russell may possible move up her date for Cardioversion. Plans for discharge home today. General: non toxic, no distress, appears at stated age Derm: warm, dry Head: atraumatic, normocephalic, symmetric Eyes: EOMI, no lid lag, anicteric sclera Mouth: no lip lesion, mucus membranes moist Cardiovascular: S1S2 irregular, no murmur Lungs: Clear to auscultation bilateral, no rhonchi, no rales , no accessory muscle use Ext: no gross muscle atrophy, no edema, no contractures Neuro: No focal neurologic deficits Psych: Alert and oriented Discharge Diagnosis: Atrial fibrillation with RVR Chest pain Abnormal UA This complex discharge took 35 minutes to complete. Patient Condition at Discharge: Stable Plan - Discharge Summary New Discharge Prescriptions: Continue amLODIPine [Norvasc] 10 mg PO DAILY Furosemide [Lasix] 10 - 20 mg PO DIRECTED Changed Dronedarone HCl [Multaq] 400 mg PO BID #0 Metoprolol Succinate (ER) [Toprol XL] 50 mg PO DAILY #0 Apixaban [Eliquis] 5 mg PO BID #0 Discharge Medication List amLODIPine [Norvasc] 10 mg PO DAILY 04/17/22 [History] Furosemide [Lasix] 10 - 20 mg PO DIRECTED 12/07/23 [History] Apixaban [Eliquis] 5 mg PO BID #0 12/08/23 [Rx] Dronedarone HCl [Multaq] 400 mg PO BID #0 12/08/23 [Rx] Metoprolol Succinate (ER) [Toprol XL] 50 mg PO DAILY #0 12/08/23 [Rx] Follow up Appointment(s)/Referral(s): Jorge A Russell DO [STAFF PHYSICIAN] - 1 Week Leonard Palma MD [Primary Care Provider] - 1 Week Discharge Disposition: HOME SELF-CARE
--- NOTE | 2023-12-08 12:11 | P.CRDCN ---
History of Present Illness Consult date: 12/08/23 Requesting physician: Dave Chan Reason for Consult (text): chest pain, afib with rvr Chief complaint: nausea, chest pressure, palpitations History of present illness: A pleasant 63-year-old female patient who follows in the office with Dr. Russell. She has a history of hypertension and atrial fibrillation status post cardioversion in August 2023. She has been maintained on Multaq 400 mg p.o. twice daily, metoprolol succinate 50 mg p.o. daily and Eliquis 5 mg p.o. twice daily. She underwent cardioversion in August 2023 and subsequently was seen in the office by Dr. Gonzalez and plan for ablation which was initially scheduled for November 18 had to be rescheduled due to insurance issues and is rescheduled for February. She presented to the emergency department after developing complaints of nausea, rapid heartbeat, shortness of breath and chest pressure. She felt the symptoms were similar to what she experienced in the past when she was in A- fib with RVR. Given IV Toprol and I will add a dose of 25 mg p.o. metoprolol tartrate in the ER and heart rate is better controlled. She did undergo stress testing in our office and was told that this was unremarkable. Most recent echocardiogram showed a normal LV systolic function with moderate MR moderate TR. she denies any alcohol intake, excessive caffeine intake or missed medication doses. Her activity has been stable. She denies any exertional symptoms. She remains in atrial fibrillation with a controlled ventricular response. Troponins were negative x 3 and NT proBNP 403. Past Medical History Past Medical History: Atrial Fibrillation, Blood Disorder, Hypertension, Osteoarthritis ([place]) Additional Past Medical History / Comment(s): Ablasion for Afib done twice - last one October 2021, on eliquis for afib, IRON DEFICIENCY ANEMIA. History of Any Multi-Drug Resistant Organisms: None Reported Past Surgical History: Bariatric Surgery, Breast Surgery, Hysterectomy, Orthopedic Surgery Additional Past Surgical History / Comment(s): right knee unispacer, benign lump removed from breast Past Anesthesia/Blood Transfusion Reactions: No Reported Reaction Past Psychological History: No Psychological Hx Reported Smoking Status: Never smoker Past Alcohol Use History: None Reported Past Drug Use History: None Reported - Past Family History Father Family Medical History: Myocardial Infarction ([place]) Medications and Allergies Home Medications Medication Instructions Recorded Confirmed Type amLODIPine [Norvasc] 10 mg PO DAILY 04/17/22 12/07/23 History Furosemide [Lasix] 10 - 20 mg PO DAILY 12/07/23 12/08/23 History Apixaban [Eliquis] 5 mg PO BID #0 12/08/23 12/07/23 Rx Dronedarone [Multaq] 400 mg PO HS 12/08/23 12/08/23 History Metoprolol Succinate (ER) [Toprol 50 mg PO BID 12/08/23 12/08/23 History Xl] Allergies Allergy/AdvReac Type Severity Reaction Status Date / Time Iodinated Contrast Media Allergy chest Verified 12/07/23 13:16 pressure/pain Sulfa (Sulfonamide Allergy Tongue Verified 12/07/23 13:16 Antibiotics) swelling & rapid heart rate Physical Exam Vitals: Vital Signs Temp Pulse Pulse Resp BP BP Pulse Ox 12/08/23 07:00 98.0 F 87 16 122/72 97 12/08/23 02:00 98 F 79 136/83 98 12/08/23 00:54 85 18 132/75 95 12/07/23 14:03 87 16 146/83 97 12/07/23 12:15 105 H 16 132/71 98 12/07/23 11:29 114 H 18 130/73 98 12/07/23 11:02 111 H 12/07/23 10:23 98.1 F 129 H 20 149/90 99 Intake and Output 12/07/23 12/08/23 12/08/23 22:59 06:59 14:59 Other: Voiding Method Toilet Toilet # Voids 1 Weight 90.718 kg PHYSICAL EXAMINATION: This is a 63-year-old female in no apparent distress at the time of my examination. VITAL SIGNS: Reviewed. HEENT: Head is atraumatic, normocephalic. Pupils are equal, round. Sclerae anicteric. Conjunctivae are clear. Mucous membranes of the mouth are moist. Neck is supple. There is no elevated jugular venous pressure. No carotid bruit is heard. CHEST EXAMINATION: Clear to auscultation bilaterally. No wheezes rales or rhonchi. Respirations even and nonlabored. HEART EXAMINATION: Heart irregular rate and rhythm, positive S1 and S2. No S3. No S4. Systolic murmur. ABDOMEN: Soft, nontender. Bowel sounds are heard. No organomegaly noted. EXTREMITIES: 2+ peripheral pulses with no evidence of peripheral edema and no calf tenderness noted. NEUROLOGIC EXAMINATION: Patient is awake, alert and oriented x3. Results 12/08/23 05:35 12/08/23 05:35 Cardiac Enzymes 12/07/23 12/07/23 12/07/23 Range/Units 11:12 11:12 14:51 AST 29 (14-36) U/L Troponin I <0.012 <0.012 (0.000-0.034) ng/mL 12/07/23 Range/Units 18:04 AST (14-36) U/L Troponin I <0.012 (0.000-0.034) ng/mL Coagulation 12/07/23 Range/Units 11:12 PT 10.8 (10.0-12.5) sec APTT 25.4 (22.0-30.0) sec CBC 12/07/23 12/08/23 Range/Units 11:12 05:35 WBC 9.9 7.55 (3.8-10.6) k/uL RBC 4.87 4.44 (3.80-5.40) m/uL Hgb 14.0 12.6 (11.4-16.0) gm/dL Hct 44.0 40.1 (34.0-46.0) % Plt Count 288 268 (150-450) k/uL Comprehensive Metabolic Panel 12/07/23 Range/Units 11:12 Sodium 141 (137-145) mmol/L Potassium 4.0 (3.5-5.1) mmol/L Chloride 109 H (98-107) mmol/L Carbon Dioxide 26 (22-30) mmol/L BUN 11 (7-17) mg/dL Creatinine 0.87 (0.52-1.04) mg/dL Glucose 82 (74-99) mg/dL Calcium 9.2 (8.4-10.2) mg/dL AST 29 (14-36) U/L ALT 35 H (4-34) U/L Alkaline Phosphatase 97 (38-126) U/L Total Protein 6.9 (6.3-8.2) g/dL Albumin 3.6 (3.5-5.0) g/dL Current Medications Generic Name Dose Route Start Last Admin Trade Name Freq PRN Reason Stop Dose Admin Amlodipine Besylate 10 mg 12/08/23 09:00 Amlodipine 10 Mg Tab PO DAILY KODY Apixaban 5 mg 12/07/23 21:00 12/07/23 22:49 Apixaban 5 Mg Tab PO 5 mg BID KODY Administration Protocol Dronedarone 400 mg 12/07/23 21:00 12/07/23 22:50 Dronedarone 400 Mg Tab PO 400 mg BID KODY Administration Metoprolol Succinate 50 mg 12/08/23 09:00 Metoprolol Succinate (Er) 50 Mg Tab.Er.24h PO DAILY KODY Naloxone HCl 0.2 mg 12/07/23 13:35 Naloxone 0.4 Mg/Ml 1 Ml Vial IV Q2M PRN Opioid Reversal Intake and Output 12/07/23 12/08/23 12/08/23 22:59 06:59 14:59 Other: Voiding Method Toilet Toilet # Voids 1 Weight 90.718 kg 12/08/23 05:35 12/07/23 11:12 Assessment and Plan Assessment: #1 atrial fibrillation with rapid ventricular response, rate currently controlled, ablation planned for February #2 chest pressure, likely secondary to above, acute coronary event has been ruled out, troponins negative x 3, nonischemic stress testing done in our office recently #3 hypertension Plan: From cardiology's perspective medications were reviewed we will continue the same. She will follow-up in the office with Dr. Russell and discuss with Dr. Gonzalez possibility of moving up the ablation. TOWBOAT CAPTAIN note has been reviewed, I agree with a documented findings and plan of care. Patient was seen and examined.
== END 2023-12-08 13:34 | disposition home or self-care (01) ==
LOC: EC 10:15 → 6NMEDSUR 13:35
PROVIDERS: ADMIT Student in an Organized Health Care Education/Training Program; ATTEND Student in an Organized Health Care Education/Training Program
DX: I48.91 Unspecified atrial fibrillation (principal); R07.89 Other chest pain; I10 Essential (primary) hypertension; R82.90 Unspecified abnormal findings in urine; Z79.01 Long term (current) use of anticoagulants; Z79.899 Other long term (current) drug therapy; Z88.2 Allergy status to sulfonamides; Z91.041 Radiographic dye allergy status; Z98.890 Other specified postprocedural states
CPT/HCPCS: 36415; 71046; 80053; 81001; 83735; 83880; 84443; 84484; 85025; 85610; 85730; 93005; 96361; 96374; 99285

== ENCOUNTER → 2024-02-20 | Outpatient (CLI) | payer MEDICARE, OTHER ==
[2024-02-20 15:29] LABS: Blood Urea Nitrogen 10.3 mg/dL (9.0-27.0); Carbon Dioxide 24.3 mmol/L (21.6-31.8); Chloride 106 mmol/L (96-109); Potassium 3.9 mmol/L (3.5-5.5); Sodium 141 mmol/L (135-145)
[2024-02-20 17:00] LABS: HCT 46.3 % (37.2-46.3); HGB 14.1 g/dL (12.0-15.0); MCH 29.1 pg (27.0-32.0); MCHC 30.5 g/dL (32.0-37.0); MCV 95.5 FL (80.0-97.0); Mean Platelet Volume 11.4 FL (9.5-12.2); NRBC Per 100 WBC 0 X 10*3/uL (0.00-0.01); Platelet Count 307 X 10*3/uL (140-440); RBC 4.85 X 10*6/uL (4.10-5.20); RDW 13.6 % (11.5-14.5); WBC 11.71 X 10*3/uL (4.50-10.00)
== END | disposition home or self-care (01) ==
LOC: LABPAT 10:01
PROVIDERS: ATTEND Internal Medicine Clinical Cardiac Electrophysiology
DX: Z01.818 Encounter for other preprocedural examination (principal); I48.0 Paroxysmal atrial fibrillation
CPT/HCPCS: 80051; 82565; 84520; 85027

== ENCOUNTER 2024-02-24 05:48 | Day surgery (SDC) | payer MEDICARE, OTHER ==
[2024-02-21 09:35] VITALS: BMI 34.3
[2024-02-24] MEDS: SODIUM CHLORIDE 0.9% 1,000 ML IV SCH (06:26)
[2024-02-24] MEDS ORDERED: HYDROmorphone 0.5 MG/0.5 ML SYRINGE IVP PRN (07:00)
[2024-02-24] MEDS: MIDAZOLAM 2 MG/2 ML VIAL IV PRN (07:08)
[2024-02-24] MEDS ORDERED: GLYCOPYRROLATE 0.2 MG/ML 2 ML VIAL ONE (07:30)
[2024-02-24] MEDS ORDERED: MIDAZOLAM 2 MG/2 ML VIAL ONE (07:30)
[2024-02-24] MEDS ORDERED: fentaNYL (PF) 50 MCG/ML 2 ML AMP ONE (07:30)
[2024-02-24] MEDS ORDERED: PROPOFOL 10 MG/ML 20 ML VIAL IV ONE (07:30)
[2024-02-24] MEDS ORDERED: NEOSTIGMINE 1 MG/ML 10 ML VIAL ONE (07:30)
[2024-02-24] MEDS ORDERED: HYDROCORTISONE SUCCINATE 100 MG/2 ML VIAL ONE (07:30)
[2024-02-24] MEDS ORDERED: SUCCINYLCHOLINE CHLORIDE 200 MG/10 ML VIAL IV ONE (07:30)
[2024-02-24] MEDS ORDERED: PHENYLEPHRINE 10 MG/ML VIAL ONE (07:30)
[2024-02-24] MEDS ORDERED: LIDOCAINE 1% INJ 10MG/ML (20 ML MDV) ONE (07:30)
[2024-02-24] MEDS ORDERED: ROCURONIUM 10 MG/ML (5 ML VIAL) IV ONE (07:30)
[2024-02-24] MEDS: IV FLUID CONTINUATION 1,000 ML IV ONE ×2 (07:35→12:26)
[2024-02-24] MEDS: HEPARIN SODIUM,PORCINE 10,000 UNIT in SODIUM CHLORIDE 0.9% 1,000 ML IRRIGATION ONE (07:36)
[2024-02-24] MEDS: HEPARIN SODIUM,PORCINE (1 ML) 2,500 UNIT in SODIUM CHLORIDE 0.9% 250 ML IRRIGATION ONE (07:36)
[2024-02-24] MEDS: HEPARIN SODIUM (1,000 UNIT/ML) 1,000 UNIT in SODIUM CHLORIDE 0.9% 1,000 ML IRRIGATION ONE (07:36)
--- NOTE | 2024-02-24 08:01 | P.HPCAR ---
History of Present Illness This is Dr. Gonzalez dictating a consult on this patient The patient was interviewed and examined IMPRESSION / ASSESSMENT: Persistent atrial fibrillation with tiredness and fatigue Improvement in symptoms shortness of breath and energy level when she underwent electrical cardioversion and was in sinus rhythm Severe biatrial enlargement PLAN: Proceed with A-fib ablation Continue anticoagulation IV hydrocortisone 100 mg for chest discomfort and shortness of breath with IV dye HPI Patient continues to complain of tiredness fatigue and shortness of breath. She also had palpitations over the weekend which she took an extra metoprolol to control her heart rates and blood pressure Denies any fever chills cough expectoration ROS: No fever chills or rigors, no cough, phlegm or expectoration, no nausea, vomiting or diarrhea, no hematuria, dysuria, no musculoskeletal complaints, no strokes or seizures, no skin lesions. EXAMINATION: Blood pressure 171/82 mmHg pulse rate 124 beats minute irregular Breath sounds are reduced bilaterally with there are no rhonchi no crackles Heart sounds no murmurs tachycardic and irregular Abdomen is soft nontender No JVD REVIEW OF LABS, ECG & MEDICAL DATA Medications include amlodipine metoprolol succinate 50 mg twice daily as needed Lasix and Eliquis 5 mg twice daily Physical Exam Vitals: Vital Signs Temp Pulse Resp BP Pulse Ox 02/24/24 06:21 99 F 124 H 16 171/82 99 Intake and Output 02/23/24 02/24/24 02/24/24 22:59 06:59 14:59 Other: Weight 95.6 kg Past Medical History Past Medical History: Atrial Fibrillation, Blood Disorder, Hypertension, Osteoarthritis (OA) Additional Past Medical History / Comment(s): IRON DEFICIENCY ANEMIA. History of Any Multi-Drug Resistant Organisms: None Reported Past Surgical History: Breast Surgery, Heart Catheterization, Hysterectomy, Orthopedic Surgery Additional Past Surgical History / Comment(s): right knee unispacer, benign lump removed from breast, CARDIOVERSION X 2, COLONOSCOPY Past Anesthesia/Blood Transfusion Reactions: No Reported Reaction Smoking Status: Never smoker - Past Family History Father Family Medical History: Myocardial Infarction ([place]) Physical Examination Vital Signs Temp Pulse Resp BP Pulse Ox 02/24/24 06:21 99 F 124 H 16 171/82 99 Intake and Output 02/23/24 02/24/24 02/24/24 22:59 06:59 14:59 Other: Weight 95.6 kg Results Current Medications Generic Name Dose Route Start Last Admin Trade Name Freq PRN Reason Stop Dose Admin Hydromorphone HCl 0.5 mg 02/24/24 07:00 Hydromorphone 0.5 Mg/0.5 Ml Syringe IVP 02/24/24 23:00 Q5M PRN Phase 1 or 2 - Pain Control Sodium Chloride 1,000 mls @ 20 mls/hr 02/24/24 06:02 02/24/24 06:26 Saline 0.9% IV 03/25/24 06:01 20 mls/hr .Q24H KODY Administration Lactated Ringer's 1,000 mls @ 20 mls/hr 02/24/24 06:02 Lactated Ringers IV 03/25/24 06:01 .Q24H KODY Intake and Output 02/23/24 02/24/24 02/24/24 22:59 06:59 14:59 Other: Weight 95.6 kg
[2024-02-24] MEDS: LIDOCAINE 1% INJ 10MG/ML (20 ML MDV) SQ ONE (08:11)
[2024-02-24] MEDS: IOPAMIDOL-370 100ML BTL INJ ONE (09:38)
[2024-02-24] MEDS: ACETAMINOPHEN IV (For NPO) 1,000 MG in EMPTY BAG 1 BAG IVPB STA (13:13)
[2024-02-24] MEDS: LACTATED RINGERS 1,000 ML IV SCH (14:00)
--- NOTE | 2024-02-24 14:08 | P.EPPROC ---
- EP Procedure Note Electrophysiology Procedure Note: PROCEDURE A. fib ablation: PVI, left atrial roof ablation, left atrial septal ablation, left atrial ridge ablation and typical atrial flutter ablation. Extended duration procedure DIAGNOSIS Persistent atrial fibrillation, symptomatic, refractory to therapy RESULT No left atrial appendage mass seen on intracardiac echo, large left atrial appendage, large left atrium, thickened pericardium with exudative material Successful A. fib ablation/pulmonary vein isolation of all veins using cryo- ablation Complete entrance block in all 4 veins confirmed Ablation of the left atrial roof Ablation of the left atrial septum Ablation of the ridge between the left atrial appendage and left sided pulmonary veins No evidence for phrenic nerve injury Esophageal deflection NO. Central esophagus Electrical cardioversion with a synchronized shock across the chest YES Induction of atrial flutter thereafter and ablation for typical atrial flutter PROCEDURE DETAILS Written informed consent prior to procedure. Patient brought to the EP lab. General anesthesia given. Heparin administered. A city maintained above 300 seconds Both groins prepped and draped per protocol and venous sheaths placed. Esophagus intubated, circa catheter for temperature monitoring an endoscope for possible esophageal deflection. Phrenic nerve monitoring performed. Esophageal temperature monitoring performed. Esophageal deflection performed if circa catheter overlapping with the balloon or circa temperature less than 27.5C Intracardiac echocardiography performed. Pericardium evaluated. Left atrial appendage evaluated. Left atrium evaluated along with pulmonary veins Transseptal catheterization performed under fluoroscopic guidance and intracardiac echo guidance Cryoablation sheath exchanged, balloon catheter along with achieve catheter placed in the left atrium. Pulmonary veins isolated in the following sequence: Left superior pulmonary vein followed by left inferior pulmonary vein, followed by right inferior pulmonary vein and lastly right superior pulmonary vein. Phrenic nerve stimulation along with capture thresholds within the SVC and right superior pulmonary vein to identify the phrenic nerve proximity to the cryo- balloon. Pulmonary veins isolated and confirmed with entrance and exit block. Phrenic nerve integrity confirmed at the end of the procedure Ablation of the left atrial roof performed with sequential lesions from the left superior to the right superior pulmonary veins. Ablation of the electrograms confirmed. Very long left atrial roof on account of for very enlarged left atrium Ablation of the left atrial septum performed with cannulation of the superior br anch of the right inferior or the inferior branch of the right superior vein to achieve ablation of the posterior septum of the left atrium. Ablation of electrograms confirmed Ablation of the left atrial ridge in between the left atrial appendage and the left sided veins. 40 W of power used Electrical cardioversion performed for persistence of atrial fibrillation despite successful ablation. Following that the patient virtually spontaneously went into an atrial tachycardia. Activation mapping of the right and left atria performed. This tachycardia was right atrial tachycardia reentry around the tricuspid valve. Despite multiple attempts entrainment could not be performed successfully, no consistent capture during tachycardia. RF ablation was then performed for likely atrial flutter with termination. There was a pouch in the middle of the isthmus where termination occurred. Following that a complete line of block was made. Thereafter differential pacing was performed and bidir ectional block was proven. Isthmus conduction time greater than 168 ms Diagnostic catheters for the high right atrium, His bundle, coronary sinus placed. LA and RA pressures recorded LA pressure: 27/06/11 Diagnostic EP study with coronary sinus pacing and recording Baseline measurements: AH equals 67, HV equals 44 Venous sheaths were removed and hemostasis assured with a closure device. Pat ient extubated and transferred to recovery Increase procedural time Very large right superior pulmonary vein requiring multiple ablations with clockwise and counterclockwise torque and subselection of the branches for antral level isolation Multiple attempts needed for successful cryoablation isolation of the pulmonary vein Very long left atrial roof requiring multiple ablations Very dilated left atrium Very long cavotricuspid isthmus for ablation for atrial flutter PROCEDURES PERFORMED Diagnostic EP study CS pacing and recording Left and right transseptal catheterization Catheter the mapping of the tachycardia Intracardiac echocardiography Pulmonary vein isolation with transseptal and comprehensive EPS, [id number] Electrical cardioversion [id number] Extended procedure duration Left atrial roof line, +[id number] Linear ablation, septum of left atrium, +[id number] Linear ablation, left atrial ridge between left atrial appendage and left-sided pulmonary veins Ablation for typical atrial flutter, linear ablation
[2024-02-24] MEDS: ACETAMINOPHEN IV (For NPO) 1,000 MG in EMPTY BAG 1 BAG IVPB ONE (20:34)
[2024-02-24] MEDS: APIXABAN 5 MG TAB PO SCH (20:35)
[2024-02-25 08:04] VITALS: RESP 16
[2024-02-25] MEDS: METOPROLOL SUCCINATE (ER) 50 MG TAB.ER.24H PO SCH (09:06)
[2024-02-25] MEDS: amLODIPine 10 MG TAB PO SCH (09:06)
[2024-02-25] MEDS: ACETAMINOPHEN TAB 325 MG TAB PO PRN (09:09)
[2024-02-25] MEDS: FUROSEMIDE 40 MG TAB PO STA (13:55)
[2024-02-25] MEDS: FUROSEMIDE 10 MG/ML 2 ML VIAL IV ONE (13:56)
[2024-02-25 16:09] VITALS: BP 122/75; PULSE 91; TEMP 98.3
--- NOTE | 2024-02-25 17:15 | P.DS ---
Providers Attending physician: Niall Gonzalez Primary care physician: Leonard Gutierrezreymundo [facility] Course: Patient is doing well. She is mildly short of breath with walking. Groins have healed well. There is a bruise with small hematoma along the adductor aspect of the right upper thigh but there is no true hematoma or swelling in relation to the venous puncture and closure site. Right side has healed well Denies any chest discomfort she has a sore throat. No swallowing problems Blood pressure 122/75 mmHg pulse rate 91 afebrile On examination heart sounds are normal and regular Breath sounds are clear Impression Persistent atrial fibrillation status post A-fib ablation with PVI left atrial roof ablation left atrial septal ablation ablation of the left atrial ridge and atrial flutter ablation Patient converted to sinus rhythm at the end of the procedure Increased BMI Hypertension Plan Incentive spirometer P.o. Lasix 40 mg 1 dose Home later this afternoon Continue Eliquis continue all other medications Follow-up with primary repair weaver in a week Plan - Discharge Summary Discharge Rx Participant: No New Discharge Prescriptions: No Action amLODIPine [Norvasc] 10 mg PO DAILY Furosemide [Lasix] 10 - 20 mg PO DAILY PRN PRN Reason: SWELLING Metoprolol Succinate (ER) [Toprol XL] 50 mg PO BID Apixaban [Eliquis] 5 mg PO BID #0 Discharge Medication List amLODIPine [Norvasc] 10 mg PO DAILY 04/17/22 [History] Furosemide [Lasix] 10 - 20 mg PO DAILY PRN 12/07/23 [History] Apixaban [Eliquis] 5 mg PO BID #0 12/08/23 [Rx] Metoprolol Succinate (ER) [Toprol XL] 50 mg PO BID 12/08/23 [History]
== END 2024-02-25 17:41 | disposition home or self-care (01) ==
LOC: CATHEP 05:48 → 6NMEDSUR 11:41 → CATHEP 02-25 17:41
PROVIDERS: ATTEND Internal Medicine Clinical Cardiac Electrophysiology
DX: I08.1 Rheumatic disorders of both mitral and tricuspid valves (principal); I48.19 Other persistent atrial fibrillation; R53.83 Other fatigue; I10 Essential (primary) hypertension; M19.90 Unspecified osteoarthritis, unspecified site; Z90.710 Acquired absence of both cervix and uterus; Z82.49 Family history of ischemic heart disease and other diseases of the circulatory system; Z79.899 Other long term (current) drug therapy; Z88.2 Allergy status to sulfonamides; Z79.01 Long term (current) use of anticoagulants
CPT/HCPCS: 92960; 93655; 93656; 93657; 86900; 86901; 86850; J2250; J1644 ×3; J2003; J0131; Q9967